=== PATIENT | male | born 1990 | race Caucasian/White ===

== ENCOUNTER 2023-08-21 11:36 | Emergency (ER) | payer BC ==
[~2023-08-21] VITALS: Ht 172.7 cm; Wt 72.6 kg
[2023-08-21 13:36] VITALS: BP 131/78; TEMP 98.2; O2SAT 98
== END 2023-08-21 13:37 | disposition home or self-care (01) ==
LOC: ER 11:36
DX: S23.29XA Dislocation of other parts of thorax, initial encounter (principal); X58.XXXA Exposure to other specified factors, initial encounter; Y93.89 Activity, other specified; Y92.89 Other specified places as the place of occurrence of the external cause; Y99.8 Other external cause status
CPT/HCPCS: 71250; A4606; A4663

== ENCOUNTER 2024-10-10 00:23 | Emergency (ER) | payer BC ==
[~2024-10-10] VITALS: Ht 172.7 cm; Wt 70.3 kg
[2024-10-10 00:26] VITALS: BP 125/73
[2024-10-10] MEDS ORDERED: KETOROLAC TROMETHAMINE 30 MG INJ ONE (02:05)
[2024-10-10] MEDS ORDERED: KETO10TA2 PO (02:13)
[2024-10-10] MEDS: KETOROLAC TROMETHAMINE 30 MG INJ IM ONE (02:22)
[2024-10-10 02:23] VITALS: BP 125/73; O2SAT 98
== END 2024-10-10 02:24 | disposition home or self-care (01) ==
LOC: ER 00:50
DX: S43.492A Other sprain of left shoulder joint, initial encounter (principal); W01.0XXA Fall on same level from slipping, tripping and stumbling without subsequent striking against object, initial encounter; Y93.89 Activity, other specified; Y92.89 Other specified places as the place of occurrence of the external cause; Y99.8 Other external cause status
CPT/HCPCS: 99284; 73030; 96372; J1885; A4606; A4663